=== PATIENT | male | born 1995 | race Caucasian/White ===

== ENCOUNTER 2016-12-16 18:10 | Emergency (ER) | payer BC ==
[2016-12-16 18:38] VITALS: BP 145/81
--- NOTE | 2016-12-16 19:04 | UC ---
Skin Complaint HPI - HPI Summary HPI Summary: About 2 DAYS ago pt noticed cluster of itchy bumps on upper sternum. Yesterday noticed more clumps on the R side of his back and over his spine. Says it feels like burning, like when he's gotten tattoos. No new outdoor exposures; did have varicella as a child. - History of Current Complaint Chief Complaint: UCRash Time Seen by Provider: 12/16/16 18:41 Stated Complaint: RASH- COUPLE WEEKS Hx Obtained From: Patient Onset/Duration: Gradual Onset, Lasting Days Timing: Constant Onset Severity: Mild Current Severity: Moderate Location: Discrete Character: Pruritus, Pain, Raised Aggravating: Touch Alleviating: Nothing Associated Signs & Symptoms: Positive: Rash - Allergy/Home Medications Allergies/Adverse Reactions: Allergies Allergy/AdvReac Type Severity Reaction Status Date / Time No Known Allergies Allergy Verified 12/16/16 18:33 Review of Systems Constitutional: Negative Skin: Rash Eyes: Negative ENT: Negative Respiratory: Negative Cardiovascular: Negative Gastrointestinal: Negative Genitourinary: Negative Motor: Negative Neurovascular: Negative Musculoskeletal: Negative Neurological: Negative Psychological: Negative All Other Systems Reviewed And Are Negative: Yes PMH/Surg Hx/FS Hx/Imm Hx Previously Healthy: Yes - Surgical History Surgical History: Yes Surgery Procedure, Year, and Place: tubes in ears - Family History Known Family History: Positive: Hypertension - Social History Alcohol Use: None Substance Use Type: None Smoking Status (MU): Never Smoked Tobacco - Immunization History Vaccination Up to Date: Yes Physical Exam Triage Information Reviewed: Yes Appearance: Well-Appearing, No Pain Distress, Well-Nourished Vital Signs: Initial Vital Signs Temp 99.6 F 12/16/16 18:33 Pulse 103 12/16/16 18:33 Resp 16 12/16/16 18:33 BP 145/81 12/16/16 18:33 Pulse Ox 97 12/16/16 18:33 Vital Signs Reviewed: Yes Eye Exam: Normal, Other - PERRL Eyes: Positive: Conjunctiva Clear ENT Exam: Normal ENT: Positive: Normal ENT inspection, Hearing grossly normal, Pharynx normal, TMs normal Dental Exam: Normal Neck exam: Normal Neck: Positive: Supple, Nontender, No Lymphadenopathy Respiratory Exam: Normal Respiratory: Positive: Chest non-tender, Lungs clear, Normal breath sounds, No respiratory distress, No accessory muscle use Cardiovascular Exam: Normal Cardiovascular: Positive: RRR, No Murmur Musculoskeletal Exam: Normal Neurological Exam: Normal Neurological: Positive: Alert Psychological Exam: Normal Skin Exam: Other - grouped vesicles on erythematous base on upper sternum, several patches in a dermatomal distribution on R upper back and over spine Course/Dx - Differential Diagnoses - Skin Complaint Differential Diagnoses: Contact Dermatitis, Drug Rash, Poison Tracie, Varicella Zoster - Diagnoses Provider Diagnoses: varicella zoster R upper chest Discharge - Discharge Plan Condition: Stable Disposition: HOME Prescriptions: ValACYclovir (*) [Valtrex 1 GM(*)] 1 gm PO TID #21 tab Patient Education Materials: Shingles (ED) Referrals: Amarjit Monte MD [Primary Care Provider] - Additional Instructions: Use ibuprofen for the discomfort. It may still take 1-2 weeks for the rash to go away, but I expect your pain and itching to decrease in that time as well. If you have severe or worsening symptoms, please see your primary care provider or return here.
== END 2016-12-16 19:06 | disposition home or self-care (01) ==
LOC: UCCORT 18:10
DX: B02.9 Zoster without complications (principal)
CPT/HCPCS: 99202; G0463